=== PATIENT | male | born 1960 | race African-American/Black ===

== ENCOUNTER → 2020-08-04 | Outpatient (CLI) | payer OTHER ==
--- NOTE | 2020-08-04 15:48 | RAD ---
EXAM: Renal sonogram. HISTORY: Renal insufficiency. TECHNIQUE: Sonographic imaging the kidneys and bladder was performed. COMPARISON: None. FINDINGS: The kidneys are normal in size. There is a 10 mm simple appearing cyst within the upper josefina e the right kidney. There is no hydronephrosis. The bladder is unremarkable.. IMPRESSION: 1. 10 mm simple right renal cyst. Follow-up is not routinely recommended for simple cysts. 2. Otherwise, sonographically unremarkable kidneys. Electronically signed by: Fabi Madison MD (08/04/2020 3:46 PM) [email or web address]
== END ==
LOC: US 14:36
PROVIDERS: ATTEND Internal Medicine Nephrology
DX: N28.1 Cyst of kidney, acquired (principal); I12.9 Hypertensive chronic kidney disease with stage 1 through stage 4 chronic kidney disease, or unspecified chronic kidney disease; N18.30 Chronic kidney disease, stage 3 unspecified
CPT/HCPCS: 76770

== ENCOUNTER → 2020-10-10 | Outpatient (CLI) | payer OTHER ==
[2020-10-11 03:17] LABS: TOTAL SERUM CREATININE 1.82 mg/dL (0.76-1.27)
== END ==
LOC: LAB 14:42
PROVIDERS: ATTEND Internal Medicine Nephrology
DX: N18.30 Chronic kidney disease, stage 3 unspecified (principal)
CPT/HCPCS: 36415; 82575; 84550